=== PATIENT | female | born 1945 | race Caucasian/White ===

== ENCOUNTER 2018-09-18 18:39 | Inpatient (IN) | payer MEDICARE, BC ==
[~2018-09-18] VITALS: Ht 170.2 cm; Wt 96.2 kg
[2018-09-18] MEDS ORDERED: ATOR10TA PO (19:10)
[2018-09-18] MEDS ORDERED: ACET-73 PO (19:10)
[2018-09-18] MEDS ORDERED: ONDA4VIA52 IV (19:10)
[2018-09-18] MEDS ORDERED: ISOS30TA6 PO (19:10)
[2018-09-18] MEDS ORDERED: IPRA3AMP23 IH (19:10)
[2018-09-18] MEDS ORDERED: FAMO10VI IV (19:10)
[2018-09-18] MEDS ORDERED: LORA2VIA33 IV (19:10)
[2018-09-18] MEDS ORDERED: LOPE2CAP PO (19:10)
[2018-09-18] MEDS ORDERED: HEPA500034 SUBCUT (19:10)
[2018-09-18] MEDS ORDERED: METO-357 PO (19:10)
[2018-09-18] MEDS ORDERED: POTA-88 PO (19:10)
[2018-09-18] MEDS ORDERED: ACET325T53 PO (19:10)
[2018-09-18] MEDS ORDERED: NITR0.4T SL (19:10)
[2018-09-18] MEDS ORDERED: FURO-152 PO (19:10)
[2018-09-18] MEDS ORDERED: ZOLP10TA2 PO (19:10)
[2018-09-18] MEDS ORDERED: BACI28OI8 TP (19:10)
[2018-09-18] MEDS ORDERED: LEVO50TA8 PO (19:10)
[2018-09-18] MEDS ORDERED: BUSP15TA3 PO (19:10)
[2018-09-18] MEDS ORDERED: DULO30CA2 PO ×2 (19:10)
[2018-09-18] MEDS ORDERED: BENZ1LOZ58 MM (19:10)
[2018-09-18] MEDS ORDERED: PHEN177S31 MM (19:10)
[2018-09-18 19:16] LABS: BASOPHILS # (AUTO) 0.1 K/uL (0.0-8.0); EOSINOPHILS # (AUTO) 0.3 K/uL (0.0-0.7); EOSINOPHILS % (AUTO) 3.3 % (0.0-7.0); HEMATOCRIT 33.6 % (31.2-41.9); HEMOGLOBIN 11.6 g/dL (10.9-14.3); LYMPHOCYTES # (AUTO) 1.1 K/uL (20.0-40.0); LYMPHOCYTES % (AUTO) 13.6 % (20.5-51.5); MEAN CORPUSCULAR HGB CONC 35 g/dL (32.3-35.6); MEAN CORPUSCULAR VOLUME 104.2 fL (75.5-95.3); MONOCYTES # (AUTO) 0.7 K/uL (2.0-10.0); MONOCYTES % (AUTO) 8.3 % (0.0-11.0); NEUTROPHILS # (AUTO) 6.1 K/uL (1.8-8.9); NEUTROPHILS % (AUTO) 73.8 % (38.5-71.5); PLATELET COUNT (AUTO) 334 K/uL (179-408); RED BLOOD CELL COUNT(AUTO) 3.22 MIL/uL (3.63-4.92); WHITE BLOOD COUNT (AUTO) 8.3 K/uL (3.8-11.8)
[2018-09-18 19:28] LABS: ALANINE AMINOTRANSFERASE 36 U/L (14-59); ALKALINE PHOSPHATASE 72 U/L (50-136); ASPARTATE AMINOTRANSFERASE 35 U/L (15-37); BILIRUBIN,DIRECT 0.2 mg/dL (0.0-0.2); BILIRUBIN,TOTAL 0.7 mg/dL (0.2-1.0); CARBON DIOXIDE 26 mmol/L (21-32); CHLORIDE 109 mmol/L (98-107); GLUCOSE 96 mg/dL (74-106); POTASSIUM 3.6 mmol/L (3.5-5.1); TOTAL PROTEIN, SERUM 7.1 g/dL (6.4-8.2); UREA NITROGEN, BLOOD 5 mg/dL (7-18)
[2018-09-18 19:30] LABS: ACETAMINOPHEN < 10.0 ug/mL (10-30)
[2018-09-18 19:42] LABS: ETHANOL < 3 MG/DL (0-0)
[2018-09-18 19:54] LABS: THYROID STIMULATING HORMONE 2.229 mIU/mL (0.358-3.740)
[2018-09-18] MEDS ORDERED: MAG HYDROX/AL HYDROX/SIMETH 30 ML LIQUID UDC PO PRN (21:00)
[2018-09-18] MEDS ORDERED: MAGNESIUM HYDROXIDE 30 ML LIQUID UDC PO PRN (21:00)
[2018-09-18] MEDS: LORAZEPAM 0.5 MG TABLET PO PRN (22:03)
[2018-09-18] MEDS: ACETAMINOPHEN 325 MG TABLET PO PRN (22:03)
[2018-09-18] MEDS: TEMAZEPAM 7.5 MG CAPSULE PO PRN (23:14)
[2018-09-18 23:46] LABS: *BILIRUBIN,URIN 2+ (NEGATIVE); *BLOOD, URINE NEGATIVE (NEGATIVE); *CLARITY,URINE SLIGHTLY CLOUDY (CLEAR); *COLOR,URINE DARK YELLOW (YELLOW); *KETONES,URINE 1+ (NEGATIVE); LEUKOCYTE ESTERASE ,URINE NEGATIVE (NEGATIVE); NITRITE, URINE NEGATIVE (NEGATIVE); UGLUCOSE NEGATIVE (NEGATIVE)
[2018-09-19 00:05] VITALS: BP 148/76
[2018-09-19 00:29] LABS: BACTERIA,URINE NONE SEEN /HPF (NONE SEEN); MUCUS,URINE FEW /LPF (0-FEW); RBC,URINE 0-3 /HPF (0-3); SQUAMOUS EPITHELIAL CELL,UR MANY /HPF (NONE SEEN); WBC,URINE 0-3 /HPF (0-3)
[2018-09-19 02:20] LABS: *AMPHETAMINE, URINE NEGATIVE (NEGATIVE); *BARBITURATE, URINE NEGATIVE (NEGATIVE); *CANNABINOID, URINE NEGATIVE (NEGATIVE); *COCCAINE, URINE NEGATIVE (NEGATIVE); *OPIATE, URINE NEGATIVE (NEGATIVE); *PHENCYCLIDINE SCREEN,URINE NEGATIVE (NEGATIVE)
[2018-09-19 02:53] VITALS: BP 148/76
[2018-09-19] MEDS: ACETAMINOPHEN 325 MG TABLET PO PRN ×4 (06:15→22:59)
[2018-09-19] MEDS: LORAZEPAM 0.5 MG TABLET PO PRN ×4 (06:15→22:39)
[2018-09-19 07:30] VITALS: BP 150/72
[2018-09-19] MEDS ORDERED: METOPROLOL SUCCINATE XL 50 MG TAB.SR.24H PO SCH (10:15)
[2018-09-19] MEDS: LEVOTHYROXINE SODIUM 50 MCG TABLET PO SCH (10:44)
[2018-09-19] MEDS: FUROSEMIDE 20 MG TABLET PO SCH (10:45)
[2018-09-19] MEDS: ISOSORBIDE MONONITRATE 30 MG TAB.SR.24H PO SCH (10:58)
[2018-09-19] MEDS ORDERED: ONDANSETRON ODT 4 MG TAB.RAPDIS SL PRN (13:00)
[2018-09-19] MEDS: DULOXETINE 30 MG CAPSULE.DR PO SCH (13:51)
[2018-09-19] MEDS: busPIRone 5 MG TABLET PO SCH ×2 (13:51→17:00)
[2018-09-19 15:17] VITALS: BP 144/67
[2018-09-19] MEDS: NEOMY/BACITRAC/POLYMI OINT 28.35 GM TUBE TOP SCH (16:32)
[2018-09-19] MEDS: DULOXETINE 60 MG CAPSULE.DR PO SCH (17:00)
[2018-09-19] MEDS: LOPERAMIDE HCL 2 MG CAPSULE PO PRN (17:00)
[2018-09-19] MEDS: SULFAMETH/TRIMETH 800/160 MG TABLET PO SCH ×3 (17:15→20:14)
[2018-09-19 20:13] VITALS: BP 163/92
[2018-09-19] MEDS: METOPROLOL SUCCINATE XL 50 MG TAB.SR.24H PO SCH (20:13)
[2018-09-19] MEDS: ATORVASTATIN 10 MG TABLET PO SCH (20:14)
[2018-09-19] MEDS: TEMAZEPAM 7.5 MG CAPSULE PO PRN (23:29)
[2018-09-19 23:39] VITALS: BP 152/81
[2018-09-20] MEDS: LEVOTHYROXINE SODIUM 50 MCG TABLET PO SCH (06:09)
[2018-09-20] MEDS: ACETAMINOPHEN 325 MG TABLET PO PRN ×3 (06:22→18:07)
[2018-09-20 07:30] VITALS: BP 153/70
[2018-09-20] MEDS: SULFAMETH/TRIMETH 800/160 MG TABLET PO SCH ×2 (09:00→21:00)
[2018-09-20] MEDS: FUROSEMIDE 20 MG TABLET PO SCH (09:01)
[2018-09-20] MEDS: busPIRone 5 MG TABLET PO SCH ×3 (09:02→17:42)
[2018-09-20] MEDS: DULOXETINE 30 MG CAPSULE.DR PO SCH (09:02)
[2018-09-20] MEDS: ISOSORBIDE MONONITRATE 30 MG TAB.SR.24H PO SCH (09:02)
[2018-09-20] MEDS: NEOMY/BACITRAC/POLYMI OINT 28.35 GM TUBE TOP SCH (12:01)
[2018-09-20] MEDS: LOPERAMIDE HCL 2 MG CAPSULE PO PRN ×2 (14:18→21:18)
[2018-09-20] MEDS: LORAZEPAM 0.5 MG TABLET PO PRN (15:06)
[2018-09-20 15:25] VITALS: BP 134/61
[2018-09-20] MEDS: DULOXETINE 60 MG CAPSULE.DR PO SCH (17:42)
[2018-09-20 20:00] VITALS: BP 140/75
[2018-09-20] MEDS: ATORVASTATIN 10 MG TABLET PO SCH (21:05)
[2018-09-20] MEDS: MIRTAZAPINE 15 MG TABLET PO SCH (21:06)
[2018-09-20] MEDS: METOPROLOL SUCCINATE XL 50 MG TAB.SR.24H PO SCH (21:07)
[2018-09-21] MEDS: ACETAMINOPHEN 325 MG TABLET PO PRN ×4 (05:07→23:52)
[2018-09-21] MEDS: LEVOTHYROXINE SODIUM 50 MCG TABLET PO SCH (06:05)
[2018-09-21 07:30] VITALS: BP 147/69
[2018-09-21] MEDS: DULOXETINE 30 MG CAPSULE.DR PO SCH (08:28)
[2018-09-21] MEDS: busPIRone 5 MG TABLET PO SCH ×3 (08:28→16:25)
[2018-09-21] MEDS: NEOMY/BACITRAC/POLYMI OINT 28.35 GM TUBE TOP SCH (08:29)
[2018-09-21] MEDS: FUROSEMIDE 20 MG TABLET PO SCH (08:29)
[2018-09-21] MEDS: ISOSORBIDE MONONITRATE 30 MG TAB.SR.24H PO SCH (08:30)
[2018-09-21] MEDS: SULFAMETH/TRIMETH 800/160 MG TABLET PO SCH ×2 (08:33→20:06)
[2018-09-21] MEDS ORDERED: NEOMY/BACITRAC/POLYMI OINT 28.35 GM TUBE TOP SCH (09:00)
[2018-09-21] MEDS: LOPERAMIDE HCL 2 MG CAPSULE PO PRN (09:37)
[2018-09-21] MEDS: LORAZEPAM 0.5 MG TABLET PO PRN ×2 (09:37→17:59)
[2018-09-21] MEDS: CULTURELLE CAPSULE PO SCH ×2 (11:56→20:04)
[2018-09-21 16:08] VITALS: BP 119/68
[2018-09-21] MEDS: DULOXETINE 60 MG CAPSULE.DR PO SCH (16:25)
[2018-09-21] MEDS: ATORVASTATIN 10 MG TABLET PO SCH (20:04)
[2018-09-21] MEDS: MIRTAZAPINE 15 MG TABLET PO SCH (20:04)
[2018-09-21] MEDS: METOPROLOL SUCCINATE XL 50 MG TAB.SR.24H PO SCH (20:05)
[2018-09-21 20:11] VITALS: BP 137/70
[2018-09-22] MEDS: LORAZEPAM 0.5 MG TABLET PO PRN ×3 (02:51→23:25)
[2018-09-22] MEDS: LEVOTHYROXINE SODIUM 50 MCG TABLET PO SCH (06:20)
[2018-09-22 08:24] VITALS: BP 125/71
[2018-09-22] MEDS: DULOXETINE 30 MG CAPSULE.DR PO SCH (08:34)
[2018-09-22] MEDS: busPIRone 5 MG TABLET PO SCH ×3 (08:34→16:03)
[2018-09-22] MEDS: FUROSEMIDE 20 MG TABLET PO SCH (08:34)
[2018-09-22] MEDS: ISOSORBIDE MONONITRATE 30 MG TAB.SR.24H PO SCH (08:35)
[2018-09-22] MEDS: CULTURELLE CAPSULE PO SCH ×2 (08:35→20:31)
[2018-09-22] MEDS: NEOMY/BACITRAC/POLYMI OINT 28.35 GM TUBE TOP SCH (08:35)
[2018-09-22] MEDS: ACETAMINOPHEN 325 MG TABLET PO PRN ×3 (08:41→20:33)
[2018-09-22] MEDS: SULFAMETH/TRIMETH 800/160 MG TABLET PO SCH ×2 (08:41→20:31)
[2018-09-22] MEDS: LOPERAMIDE HCL 2 MG CAPSULE PO PRN ×2 (09:09→20:33)
[2018-09-22 15:40] VITALS: BP 146/86
[2018-09-22] MEDS: DULOXETINE 60 MG CAPSULE.DR PO SCH (16:03)
[2018-09-22] MEDS: ATORVASTATIN 10 MG TABLET PO SCH (20:31)
[2018-09-22] MEDS: MIRTAZAPINE 15 MG TABLET PO SCH (20:32)
[2018-09-22] MEDS: METOPROLOL SUCCINATE XL 50 MG TAB.SR.24H PO SCH (20:32)
[2018-09-22 20:43] VITALS: BP 144/90
[2018-09-23] MEDS: ACETAMINOPHEN 325 MG TABLET PO PRN ×2 (04:34→10:04)
[2018-09-23] MEDS: LEVOTHYROXINE SODIUM 50 MCG TABLET PO SCH (06:52)
[2018-09-23 07:30] VITALS: BP 147/74
[2018-09-23] MEDS: SULFAMETH/TRIMETH 800/160 MG TABLET PO SCH (08:32)
[2018-09-23 08:33] VITALS: BP 147/74
[2018-09-23] MEDS: ISOSORBIDE MONONITRATE 30 MG TAB.SR.24H PO SCH (08:33)
[2018-09-23] MEDS: DULOXETINE 30 MG CAPSULE.DR PO SCH (08:33)
[2018-09-23] MEDS: busPIRone 5 MG TABLET PO SCH ×2 (08:33→13:06)
[2018-09-23] MEDS: FUROSEMIDE 20 MG TABLET PO SCH (08:34)
[2018-09-23] MEDS: CULTURELLE CAPSULE PO SCH (08:34)
[2018-09-23] MEDS: NEOMY/BACITRAC/POLYMI OINT 28.35 GM TUBE TOP SCH (13:06)
== END 2018-09-23 15:05 | disposition other institution (70) | DRG 885 ==
LOC: ER 18:39 → GPS 20:34
PROVIDERS: ADMIT Psychiatry & Neurology Psychosomatic Medicine; ATTEND Nurse Practitioner Acute Care
DX: F33.2 Major depressive disorder, recurrent severe without psychotic features (principal); I11.0 Hypertensive heart disease with heart failure; L03.116 Cellulitis of left lower limb; L03.115 Cellulitis of right lower limb; I50.30 Unspecified diastolic (congestive) heart failure; I51.81 Takotsubo syndrome; T40.2X2D Poisoning by other opioids, intentional self-harm, subsequent encounter; I48.91 Unspecified atrial fibrillation; E03.9 Hypothyroidism, unspecified; G89.29 Other chronic pain; Z79.890 Hormone replacement therapy; E78.5 Hyperlipidemia, unspecified; F41.9 Anxiety disorder, unspecified; Y90.0 Blood alcohol level of less than 20 mg/100 ml; R19.7 Diarrhea, unspecified; S90.812A Abrasion, left foot, initial encounter; S90.811A Abrasion, right foot, initial encounter; W19.XXXA Unspecified fall, initial encounter; Y92.89 Other specified places as the place of occurrence of the external cause
CPT/HCPCS: 36415; 70030-TC; 70450; 71045; 80307; 84443; 85025; 93005; 97110; 97116; A4663; G0480; G0480-TC; Q0162